=== PATIENT | male | born 1995 | race Hispanic/Latino ===

== ENCOUNTER 2024-06-25 11:28 | Emergency (ER) | payer SELFPAY ==
[2024-06-25] MEDS ORDERED: methylPREDNISolone Acetate 40 mg/ml Vial ONE (12:10)
== END 2024-06-25 12:46 | disposition home or self-care (01) ==
LOC: NAV ERS 11:28
DX: T78.40XA Allergy, unspecified, initial encounter (principal); F17.210 Nicotine dependence, cigarettes, uncomplicated
CPT/HCPCS: 96372; 99282; J1010

== ENCOUNTER 2024-09-17 23:47 | Emergency (ER) | payer SELFPAY | END 2024-09-18 00:10 | disposition home or self-care (01) | LOC: NAV ERS 23:47 | DX: L71.9 Rosacea, unspecified (principal); F17.210 Nicotine dependence, cigarettes, uncomplicated; Z55.6 Problems related to health literacy | CPT/HCPCS: 99282 ==